=== PATIENT | male | born 1955 | race Caucasian/White ===

== ENCOUNTER 2025-01-25 09:31 | Outpatient (AMB) | payer MEDICARE, SELFPAY ==
--- NOTE | 2025-01-25 09:32 | MHC.OFFVIS ---
Vital Signs 01/25/25 09:39 Height 5 ft 10.5 in Weight 245 lb 2 oz BMI 34.7 BP 167/92 H Blood Pressure Location Rt brachial Position Sitting Pulse 82 Pulse Source Pulse Oximeter Pulse Oximetry (%) 98 Oxygen Delivery Method Room Air Intake Visit Reasons: Knee pain Intake Note: Pain today 5 Artist'S Model Required: No Accompanied by: Self / Same As Patient Allergies codeine Allergy (Unknown, Verified 01/25/25 09:38) Vomiting HPI Comments Details: The patient is a 69-year-old male presenting with bilateral knee pain. He reports experiencing chronic bilateral knee pain for 12 to 15 years, with greater intensity on the left knee. Denies recent trauma, injury or falls. Reports remote history of left knee surgery at age 19 along medial aspect of left knee. Denies any recent Orthopedic evaluation or recent physical therapy. X-rays taken approximately a year ago revealed marked osteoarthritis. He describes the pain as constant, aching, and stabbing, particularly concentrated on the medial aspects of the knees. This pain impairs his ability to perform daily activities, such as climbing stairs, necessitating altered foot positioning to ascend. The condition influences his decision to semi-retire, as his ability to work full-time is limited. The patient's history includes previous usage of aspirin 325 mg daily to manage pain, which was substituted for Tylenol Arthritis due to nosebleeds that started about 3 weeks ago. The patient also reports taking fish oil for cholesterol management. Given significant function limitation due to bilateral knee pain, patient is not able to pursue formal physical therapy at this time. - Onset: Chronic, 12-15 years duration - Character: Aching, stabbing, sharp, sore and throbbing sensations - Location: Bilateral knees, predominantly medial aspects - Severity: High enough to affect stair navigation and require foot angling. Pain is rated 7-8/10, constant. - Radiation: Non-radiating - Exacerbating factors: Climbing stairs, direct pressure on knees, walking - Relieving factors: Minimal relief with Tylenol Arthritis, previously with aspirin; rest, elevation, ice - Interference: Limits ability to ascend stairs normally, impacts work routine - Affect: Associated with daily functioning and work - Analgesia: Previously used aspirin, transitioned to Tylenol Arthritis; pain reduced slightly after change - Adverse Effects: Nosebleeds suspected from aspirin, now ceased; awareness of blood-thinning properties of fish oil - Activities of Daily Living: Affects stair navigation, limiting full-time work; semi-retired status - Aberrant Drug Related Behaviors: None reported [facility] Medical History (Updated 01/25/25 @ 09:58 by LYUDMILA Helms) Epistaxis Osteoarthritis of knees, bilateral Surgical History (Updated 01/25/25 @ 10:29 by LYUDMILA Helms) History of meniscectomy of left knee (~1973) H/O vasectomy H/O hernia repair Social History (Updated 01/25/25 @ 09:36 by Jenna Rubio) Alcohol intake: current Alcohol intake frequency: a few times a week Alcohol type: hard liquor Substance Use Type: Marijuana Review of Systems Const Details: - Musculoskeletal: Reports bilateral knee pain, especially on the left side - Neurological: Denies numbness or tingling - Sleep: Denies interference with sleep - Cardiovascular: Reports history of elevated blood pressure due to white coat syndrome - Hematological: Reports recurrent epistaxis, plans to stop fish oil and seek ER care if active bleeding. All systems reviewed & are unremarkable except as noted in HPI and below Physical Exam Vital Signs: Last Vital Signs Pulse 82 01/25/25 09:39 BP 167/92 H 01/25/25 09:39 Pulse Ox 98 01/25/25 09:39 Oxygen Delivery Method Room Air 01/25/25 09:39 BMI result Body Mass Index 34.7 General: Appears afebrile. Alert and oriented. Mood and affect appropriate. Follows and participates in conversation appropriately. Respiratory effort is unlabored. No cough. Left nostril packed with cotton ball, reports recent epistaxis this am. Able to transition from sit to stand unassisted. Ambulates with bilaterally normal heel strike and toe off. Extrem General: Yes capillary refill normal, Yes no clubbing, cyanosis or edema and Yes no calf tenderness Right lower extremity: knee (Limited ROM due to pain) Details: normal to inspection, tenderness Location: of the medial joint line and crepitus; no swelling, no ecchymosis and no unusual warmth Left lower extremity: knee (Limited ROM due to pain) Details: normal to inspection, tenderness Location: of the medial joint line and crepitus; no swelling, no ecchymosis and no unusual warmth Results Reviewed Results Reviewed: Assessment & Plan Assessment & Plan (1) Osteoarthritis of knees, bilateral: Code(s): M17.0 - Bilateral primary osteoarthritis of knee Category: Medical (2) Bilateral knee pain: Code(s): M25.561 - Pain in right knee; M25.562 - Pain in left knee Category: Medical (3) Epistaxis: Code(s): R04.0 - Epistaxis Category: Medical Plan The current therapeutic strategy involves administering Synvisc One gel injections to both knees to manage severe osteoarthritis, pending insurance pre-authorization. We also discussed steroid knee injections and diagnostic nerve blocks for potential Sprint PNS trial vs genicular nerve RFA. Information pamphlets were provided to patient. The approach aims to optimize the patient's comfort and ability to perform daily activities while maintaining non-invasive management. Educational points stress the importance of discontinuing fish oil to minimize epistaxis risk, coupled with guidance to promptly seek care if active bleeding resumes. All questions and concerns have been answered and patient agreed with the plan. Follow up after injections and sooner as needed. Patient was informed and verbally consented to the use of an ambient scribe for clinic note documentation during this visit. Patient Instructions: During this consultation, I explained to the patient that the primary diagnosis of osteoarthritis necessitates a Synvisc One or cortisone injection, pending insurance confirmation, as our chosen management due to its potential to alleviate joint pain. The conversation included an explanation of the pros and cons associated with cortisone versus gel injections, evaluating the solutions tailored to his unique needs and lifestyle. The dialogue covered risks, including potential discomfort following the gel injection and clarified that financial implications would be absent due to coverage from insurance. Consent was ratified for the use of these injections, understanding potential side effects and anticipated improvements. I also counselled on discontinuing fish oil, relaying its potential contribution to recent epistaxis. Patient has stopped Aspirin but continues with daily nosebleeds. Follow-up was scheduled to appraise response to treatment, with adjustments predicated on response efficacy and continued symptomatology management. - Stop taking fish oil supplements until further notice. Follow up with PCP regarding restarting ASA or fish oil. - Monitor nosebleeds; seek urgent or ER care if there is active bleeding that does not cease. - Prepare for potential gel injections; await notification regarding insurance authorization. - Adhere to current medication regimen with Tylenol Arthritis; monitor for response. - Report any significant changes in knee pain, mobility, or new symptoms. - Attend follow-up appointment after receiving the gel injections to assess effectiveness. Coding Level of Care Code New Pt Level 4 (23545) Diagnoses Osteoarthritis of knees, bilateral M17.0 Bilateral knee pain M25.561; M25.562 Epistaxis R04.0
[2025-01-25 09:39] VITALS: BP 167/92; PULSE 82; O2SAT 98; BMI 34.7
--- OUTSIDE RECORDS SUMMARY | 2025-01-25 09:43 | XMS_ITS | Clinical Summary ---
Author Organization [facility] Address [address] [place] [address] Care Team Providers Care Rn Baby Name Role Phone Unavailable Primary Care Provider Unavailabl e Social History Tobacco Use Types Packs/Day Years Used Date Smoking Tobacco: Never Assessed Sex and Gender Information Value Date Recorded Sex Assigned at Not on file Gender Identity Not on file Sexual Orientation Not on file Job Start Date Occupation Industry Not on file Not on file Not on file Plan of Treatment Health Maintenance Due Date Last Done Comments Hepatitis C Screening 1955 COVID-19 Vaccine (#1) 1957 Depression Screening 1969 Preventative Health Evaluation 1975 DTap / Tdap / Td (1 - Tdap) 1976 Colon Cancer Screening (Colonoscopy) 2002 Shingrix-Zoster Vaccine (1 of 2) 2007 Fall Risk Assessment 2022 Pneumococcal Vaccine (1 of 1 - PCV) 2022 Influenza Vaccine (#1) 2024 RSV Adult > 60+ Yrs or Pregn ant (1 - 1-dose 75+ series) 2032 Hepatitis B Vaccines Aged Out No long er eligible based on patient's age to complete this topic RSV Ped < 20 months Aged Out No longe r eligible based on patient's age to complete this topic
--- OUTSIDE RECORDS SUMMARY | 2025-01-25 09:43 | XMS_ITS | Encounter Summary ---
Author Organization [facility] Address [address] [place] [address] Care Team Providers Care Production Support Supervisor Name Role Phone Unavailable Primary Care Provider [...] PM EDT Report addended based on failed [employer] time stamp. Original dictation performed on 07/03/24. [...] pericardial effusion seen. Visualized abdomen is normal. ?? IMPRESSION: CT coronary calcium score of 190. *Calcium score table: 0: ?No evidence of CAD. 1-10: ? Minimal CAD. 11-100: ?Mild CAD. 101-400: ??Moderate CAD. Over 400: Extensive CAD. Procedure Note Walt Shaw MD - 07/30/2024 Report addended based on failed PowerScribe time stamp. Original dictationperformed on 07/03/24. Report reviewed and signed by : Dr. Walt Shaw on 07/07/2024 4:49 PM.Workstation Name - [id number]-PC Study performed in a separate session. EXAMINATION: [...]
--- OUTSIDE RECORDS SUMMARY | 2025-01-25 09:43 | XMS_ITS | Clinical Summary ---
Author Organization [facility] ity Address [address] [place] [address] Care Team Providers Care Linoleum Tile Layer Name Role Phone Unavailable Primary Care Provider Unavailabl e Social History Tobacco Use Types Packs/Day Years Used Date Smoking Tobacco: Never Assessed Sex and Gender Information Value Date Recorded Sex Assigned at Not on file Legal Sex Male 1:38 PM EDT Gender Identity Not on file Sexual Orientation Not on file Plan of Treatment Health Maintenance Due Date Last Done Comments DTaP,Tdap,and Td Vaccines (1 - Tdap) 1976 Pneumococcal Vaccine: 50+ Ye ars (1 of 1 - PCV) 2007 Zoster Vaccines (1 of 2) 2007 COVID-19 Vaccine ( - 2023-2 5 season) 2024 Abdominal Aortic Aneurysm (A AA) Screen 07/18/2024 Cholesterol Screening (Lipid Panel) 07/18/2024 Colorectal Cancer Screening: Colonoscopy 07/18/2024 Depression Screening 07/18/2024 Falls Risk Assessment 07/18/2024 Hepatitis C Screening 07/18/2024 Social Influencers of Health Screening 07/18/2024 Influenza Vaccine (Season Ended) 2025 RSV Immunization Adult Patie nts (1 - 1-dose 75+ series) 2032 HIB Vaccines Aged Out No longer eligi ble based on patient's age to complete this topic HPV Vaccines Aged Out No longer eligi ble based on patient's age to complete this topic Hepatitis A Vaccines Aged Out No long er eligible based on patient's age to complete this topic Hepatitis B Vaccines Aged Out No long er eligible based on patient's age to complete this topic IPV Vaccines Aged Out No longer eligi ble based on patient's age to complete this topic MMR Vaccines Aged Out No longer eligi ble based on patient's age to complete this topic Meningococcal ACWY Vaccine Aged Out N o longer eligible based on patient's age to complete this topic Meningococcal B Vaccine Aged Out No l onger eligible based on patient's age to complete this topic RSV Immunization Patients Un anmol 20 months Aged Out No longer eligible b ased on patient's age to complete this topic Varicella Vaccines Aged Out No longer eligible based on patient's age to complete this topic
== END 2025-01-25 10:17 | disposition home or self-care (01) ==
LOC: HO.PMC 09:31
PROVIDERS: PCP Physician Assistant Medical; Referring Provider Physician Assistant Medical; Visit Provider Nurse Practitioner Family
DX: M17.0 Bilateral primary osteoarthritis of knee (principal); M25.561 Pain in right knee; M25.562 Pain in left knee
CPT/HCPCS: 99204

== ENCOUNTER → 2025-01-25 09:31 | Outpatient (BNVA) | payer MEDICARE, SELFPAY | PROVIDERS: PCP Physician Assistant Medical; Referring Provider Physician Assistant Medical; Visit Provider Nurse Practitioner Family | DX: M17.0 Bilateral primary osteoarthritis of knee (principal); R04.0 Epistaxis | CPT/HCPCS: 99202 ==

== ENCOUNTER 2025-02-21 06:05 | Outpatient (REF) | payer MEDICARE, SELFPAY ==
--- NOTE | ~2025-02-21 | FL_ITS ---
EXAMINATION: XR FLUOROSCOPY WITH IMAGES CLINICAL INFORMATION: Left knee pain management. COMPARISON: None available. TECHNIQUE: Fluoroscopy provided to: Dr. Spangler Fluoroscopy time: 0.2 minutes DAP: [id number] mGycm2 Images: 3 FINDINGS: 3 fluoroscopic spot images taken during left knee pain management injection. Please refer to the full operative report for details. FL/FL guidance in treatment room IMPRESSION: Fluoroscopic guidance. Electronically signed by: Israel Arteaga MD 02/21/2025 01:41 PM EDT
== END 2025-02-21 06:06 | disposition home or self-care (01) ==
LOC: CF 06:05
PROVIDERS: Visit Provider Internal Medicine
DX: M17.0 Bilateral primary osteoarthritis of knee (principal)
CPT/HCPCS: 20610; J2003; J7325; Q9967

== ENCOUNTER 2025-02-21 09:32 | Outpatient (AMB) | payer MEDICARE, SELFPAY ==
[2025-02-21 09:40] VITALS: BP 138/76; PULSE 88; RESP 16; O2SAT 98
--- NOTE | 2025-02-21 09:40 | A.OFFVIS_ITS ---
Vital Signs 02/21/25 09:40 02/21/25 10:19 BP 138/76 140/82 H Blood Pressure Location Lt brachial Lt brachial Position Sitting Sitting Respiration 16 16 Pulse 88 73 Pulse Source Pulse Oximeter Pulse Oximeter Pulse Oximetry (%) 98 97 Oxygen Delivery Method Room Air Room Air Intake Visit Reasons: Left knee Synvisc One w/ fluoro Computer Assembler Required: No Allergies codeine Allergy (Unknown, Verified 02/21/25 09:41) Vomiting Medication List - Last Reconciled 02/21/25 by Mikki Dickerson LPN acetaminophen ER 650 mg PO Q12H glucosamine-chondroitin 250-200 mg (Osteo Bi-Flex) 2 tabs PO TID omega 5-izw-blt-fish oil 1,000 (120-180) mg (Fish Oil) 1 cap PO DAILY vitamin K2 100 mcg PO DAILY HPI HPI Left knee Synvisc One w/ fluoro: Details: Patient presents for scheduled procedure. Denies any recent cough, cold, infection, fever or other significant changes in medical history since last office visit. [facility] Medical History (Updated 01/25/25 @ 09:58 by LYUDMILA Helms) Epistaxis Osteoarthritis of knees, bilateral Surgical History (Updated 01/25/25 @ 10:29 by LYUDMILA Helms) History of meniscectomy of left knee (~1973) H/O vasectomy H/O hernia repair Social History (Updated 01/25/25 @ 09:41 by Jenna Rubio) Alcohol intake: current Alcohol intake frequency: a few times a week Alcohol type: hard liquor Substance Use Type: Marijuana Physical Exam Vital Signs: Last Vital Signs Pulse 73 02/21/25 10:19 Resp 16 02/21/25 10:19 BP 140/82 H 02/21/25 10:19 Pulse Ox 97 02/21/25 10:19 Oxygen Delivery Method Room Air 02/21/25 10:19 Office Procedures AMB Joint Injection/Aspiration Joint Injection/Aspiration Primary Site: left knee Prep: site was prepped using sterile technique Approach Used: medial parapatellar (fluoroscopy guided arthrogram) Procedure: The patient tolerated the procedure well Coding 20325 - Large joint Procedure code (CPT) selection complete Office Meds Synvisc-One 48 mg/6 mL intra-articular syringe Performing Provider: Gabi Rader APRN, INSIDE SALES TERRITORY MANAGER Performing Location: [facility] [place] [facility] Administered by: Scott Spangler MD on 02/21/25 09:59 Dose Route Admin Location Dispensed Lot Number Expiration Date ND Process Design Engineer 48 mg intra-articular 6 mL [id number] 03/03/27 [address]-3 [employer] - Assessment & Plan Assessment & Plan (1) Osteoarthritis of knees, bilateral: Code(s): M17.0 - Bilateral primary osteoarthritis of knee Category: Medical Plan Patient is status post left knee Synvisc injection. Patient tolerated procedure well and was discharged home in stable condition with discharge instructions. All questions were answered. We will follow-up via telephone or in clinic to assess response to therapy. A follow-up appointment was made during today's visit. Orders: Orders FL guidance in treatment room Today M25.561 - Pain in right knee, M25.562 - Pain in left knee AMB Hyaluronic Injection Today M17.0 - Bilateral primary osteoarthritis of knee Coding Level of Care Code Procedure Only Diagnoses Osteoarthritis of knees, bilateral M17.0 CPT Codes Coding - 12516 Large joint: 10436 - Large joint ([id number])
--- OUTSIDE RECORDS SUMMARY | 2025-02-21 09:49 | XMS_ITS | Clinical Summary ---
Author Organization [facility] ity Address [address] [place] [address] Care Team Providers Care Thread Marker Name Role Phone Unavailable Primary Care Provider [...]
--- OUTSIDE RECORDS SUMMARY | 2025-02-21 09:49 | XMS_ITS | Encounter Summary ---
Author Organization [facility] Address [address] [place] [address] Care Team Providers Care County Attorney Name Role Phone Unavailable Primary Care Provider [...] PM EDT Report addended based on failed Filmastercribe time stamp. Original dictation performed on 07/03/24. [...] Shaw on 07/07/2024 4:49 PM.Workstation Name - [employer]2-PC Study performed in a separate session. EXAMINATION: [...]
--- OUTSIDE RECORDS SUMMARY | 2025-02-21 09:50 | XMS_ITS | Clinical Summary ---
Author Organization [facility] Address [address] [place] [address] Care Team Providers Care Soccer Ball Assembler Name Role Phone Unavailable Primary Care Provider [...]
[2025-02-21 10:19] VITALS: BP 140/82; PULSE 73; RESP 16; O2SAT 97
== END 2025-02-21 10:19 | disposition home or self-care (01) ==
LOC: HO.PMCPRC 09:32
PROVIDERS: PCP Physician Assistant Medical; Visit Provider Internal Medicine
DX: M17.0 Bilateral primary osteoarthritis of knee (principal)
CPT/HCPCS: 20610; 77002

== ENCOUNTER 2025-02-28 06:16 | Outpatient (REF) | payer MEDICARE, SELFPAY ==
--- NOTE | ~2025-02-28 | FL_ITS ---
EXAMINATION: XR FLUOROSCOPY WITH IMAGES CLINICAL INFORMATION: Right knee osteoarthritis, pain management injection. COMPARISON: None available. TECHNIQUE: Fluoroscopy provided to: Dr. Spangler Fluoroscopy time: 0.3 minutes DAP: [id number] Images: 1 FINDINGS: Solitary spot image of the right knee during intra-articular joint injection. For full operative report for details. FL/FL guidance in treatment room IMPRESSION: Fluoroscopic guidance. Electronically signed by: Israel Arteaga MD 02/28/2025 02:19 PM EDT
== END 2025-02-28 06:17 | disposition home or self-care (01) ==
LOC: CF 06:16
PROVIDERS: Visit Provider Internal Medicine
DX: M17.0 Bilateral primary osteoarthritis of knee (principal)
CPT/HCPCS: 20610; J2003; J7325; Q9967

== ENCOUNTER 2025-02-28 09:39 | Outpatient (AMB) | payer MEDICARE, SELFPAY ==
--- NOTE | 2025-02-28 09:39 | MHC.OFFVIS ---
Vital Signs 02/28/25 09:40 02/28/25 10:43 Height 5 ft 10.5 in BP 146/75 H 150/76 H Blood Pressure Location Lt brachial Lt brachial Position Sitting Sitting Respiration 15 15 Pulse 90 64 Pulse Source Pulse Oximeter Pulse Oximeter Pulse Oximetry (%) 97 96 Oxygen Delivery Method Room Air Room Air Intake Visit Reasons: Right knee Synvisc One w/ fluoro Shellfish Shucker Required: No Allergies codeine Allergy (Unknown, Verified 02/28/25 09:52) Vomiting HPI HPI Right knee Synvisc One w/ fluoro: Details: Patient presents for scheduled procedure. Denies any recent cough, cold, infection, fever or other significant changes in medical history since last office visit. [facility] Medical History (Updated 01/25/25 @ 09:58 by LYUDMILA Helms) Epistaxis Osteoarthritis of knees, bilateral Surgical History (Updated 01/25/25 @ 10:29 by LYUDMILA Helms) History of meniscectomy of left knee (~1973) H/O vasectomy H/O hernia repair Social History (Updated 01/25/25 @ 09:41 by Jenna Rubio) Alcohol intake: current Alcohol intake frequency: a few times a week Alcohol type: hard liquor Substance Use Type: Marijuana Physical Exam Vital Signs: Last Vital Signs Pulse 64 02/28/25 10:43 Resp 15 02/28/25 10:43 BP 150/76 H 02/28/25 10:43 Pulse Ox 96 02/28/25 10:43 Oxygen Delivery Method Room Air 02/28/25 10:43 Office Procedures AMB Joint Injection/Aspiration Joint Injection/Aspiration Primary Site: right knee Prep: site was prepped using sterile technique Approach Used: medial parapatellar (Fluoroscopy Guided) Procedure: The patient tolerated the procedure well Coding 31144 - Large joint Procedure code (CPT) selection complete Office Meds Synvisc-One 48 mg/6 mL intra-articular syringe Performing Provider: Gabi Rader APRN, LAUNDRY MACHINE OPERATOR Performing Location[place] [facility] [place] [facility] Administered by: Scott Spangler MD on 02/28/25 10:27 Dose Route Admin Location Dispensed Lot Number Expiration Date ND Ceramic Maker Demonstrator 48 mg intra-articular 6 mL [id number] 04/01/27 [address]-8 [employer] DEON - Assessment & Plan Assessment & Plan (1) Osteoarthritis of knees, bilateral: Code(s): M17.0 - Bilateral primary osteoarthritis of knee Category: Medical Plan Patient is status post right knee Synvisc-One injection. Patient tolerated procedure well and was discharged home in stable condition with discharge instructions. All questions were answered. We will follow-up via telephone or in clinic to assess response to therapy. A follow-up appointment was made during today's visit. Orders: Orders FL guidance in treatment room Today M17.0 - Bilateral primary osteoarthritis of knee AMB Hyaluronic Injection Today M17.0 - Bilateral primary osteoarthritis of knee Coding Level of Care Code Procedure Only Diagnoses Osteoarthritis of knees, bilateral M17.0 CPT Codes Coding - 39780 Large joint: 01730 - Large joint ([id number])
[2025-02-28 09:40] VITALS: BP 146/75; PULSE 90; RESP 15; O2SAT 97
[2025-02-28 10:43] VITALS: BP 150/76; PULSE 64; RESP 15; O2SAT 96
== END 2025-02-28 10:46 | disposition home or self-care (01) ==
LOC: HO.PMCPRC 09:39
PROVIDERS: PCP Physician Assistant Medical; Visit Provider Internal Medicine
DX: M17.11 Unilateral primary osteoarthritis, right knee (principal)
CPT/HCPCS: 20610; 77002

== ENCOUNTER 2025-03-21 09:56 | Outpatient (AMB) | payer MEDICARE, SELFPAY ==
--- OUTSIDE RECORDS SUMMARY | 2024-07-03 12:38 | XMS_ITS | Encounter Summary ---
Author Organization [facility] Address [address] [place] [address] Care Team Providers Care Oil Program Compliance Specialist Name Role Phone Unavailable Primary Care Provider Unavailabl e Encounter Details Date Type Department Care Team (Latest Contact Info) Description 07/03/2024 12:38 PM EDT Hospital Encounter TH HISTORIC ENCOUNTERS EASTERN CONVERSION ONLY Hyperlipidemia, unspecified Social History Tobacco Use Types Packs/Day Years Used Date Smoking Tobacco: Never Assessed Sex and Gender Information Value Date Recorded Sex Assigned at Not on file Legal Sex Male 1:38 PM EDT Gender Identity Not on file Sexual Orientation Not on file documented as of this encounter Plan of Treatment Not on file documented as of this encounter Procedures Procedure Name Priority Date/Time Associated Diagnosis Comments CT CORONARY CALCIUM SCORE WITHOUT IV CONTRAST Routine 07/03/2024 1:03 PM EDT Hyperlipidemia, unspecified documented in this encounter Results * CT CORONARY CALCIUM SCORE WITHOUT IV CONTRAST (07/03/2024 1:03 PM EDT) Anatomical Region Laterality Modality Computed Tomogra phy 06/08/2024 9:24 AM EDT Narrative 07/07/2024 4:49 PM EDT Report addended based on failed [employer] time stamp. Original dictation performed on 07/03/24. Report reviewed and signed by : Dr. Walt Shaw on 07/07/2024 4:49 PM. Workstation Name - [id number] Study performed in a separate session. EXAMINATION: CT coronary calcium scoring without contrast HISTORY: Evaluate for coronary calcifications. Technique: Contiguous CT images of the heart were obtained without contrast. Coronary calcium scoring done using a software with Agatston scoring system. FINDINGS: There are mild coronary calcifications seen. The coronary calcium scores are as follows: left main 0, LAD 45, LCx 0 and RCA is 145. Visualized lungs are clear. Visualized bones show no suspicious lesions. No cardiomegaly or pericardial effusion seen. Visualized abdomen is normal. IMPRESSION: CT coronary calcium score of 190. *Calcium score table: 0: No evidence of CAD. 1-10: Minimal CAD. 11-100: Mild CAD. 101-400: Moderate CAD. Over 400: Extensive CAD. Procedure Note Walt Shaw MD - 07/30/2024 Report addended based on failed [employer] time stamp. Original dictationperformed on 07/03/24. Report reviewed and signed by : Dr. Walt Shaw on 07/07/2024 4:49 PM.Workstation Name - [id number] Study performed in a separate session. EXAMINATION: CT coronary calcium scoring without contrast HISTORY: Evaluate for coronary calcifications. Technique: Contiguous CT images of the heart were obtained withoutcontrast. Coronary calcium scoring done using a software with Agatstonscoring system. FINDINGS: There are mild coronary calcifications seen. The coronary calcium scores are as follows: left main 0, LAD 45, LCx 0 and RCA is 145. Visualized lungs are clear. Visualized bones show no suspicious lesions. No cardiomegaly or pericardial effusion seen. Visualized abdomen isnormal. IMPRESSION: CT coronary calcium score of 190. *Calcium score table: 0: No evidence of CAD. 1-10: Minimal CAD. 11-100: Mild CAD. 101-400: Moderate CAD. Over 400: Extensive CAD. Kush Rangel NP IMG CT PROCEDURES Final Re sult documented in this encounter Visit Diagnoses Diagnosis Hyperlipidemia, unspecified documented in this encounter
--- NOTE | 2025-03-21 10:03 | MHC.OFFVIS ---
Vital Signs 03/21/25 10:12 Height 5 ft 10.5 in Weight 242 lb BMI 34.2 BP 132/60 Blood Pressure Location Rt brachial Position Sitting Pulse 86 Pulse Source Pulse Oximeter Pulse Oximetry (%) 99 Oxygen Delivery Method Room Air Intake Visit Reasons: s/p liana Synvisc One inj Intake Note: Pain today 0/10 Email Operations Manager Required: No Accompanied by: Self / Same As Patient Allergies codeine Allergy (Unknown, Verified 03/21/25 10:11) Vomiting HPI Comments Details: The patient is a 69-year-old male presenting with chronic bilateral knee pain due to osteoarthritis. He received Synvisc 1 gel injections in January, which have effectively reduced his pain to 0/10. The patient reports stiffness after prolonged sitting and discomfort with climbing stairs but no significant pain. He has been using an Expedite collagen supplement since the injections, which he believes aids in his recovery. The patient discontinued statins and fish oil due to adverse effects, including frequent nose bleeding, and now plans to take fish oil once a week. Weight management has been discussed as a preventative measure to alleviate knee stress. Denies any recent cough, cold, infection, fever or any significant changes in medical history since last office visit. Past Procedures: 02/28/25: Right knee Synvisc One-90% ongoing pain relief 02/21/25: Left knee Synvisc One-90% ongoing pain relief PRIOR: The patient is a 69-year-old male presenting with bilateral knee pain. He reports experiencing chronic bilateral knee pain for 12 to 15 years, with greater intensity on the left knee. Denies recent trauma, injury or falls. Reports remote history of left knee surgery at age 19 along medial aspect of left knee. Denies any recent Orthopedic evaluation or recent physical therapy. X-rays taken approximately a year ago revealed marked osteoarthritis. He describes the pain as constant, aching, and stabbing, particularly concentrated on the medial aspects of the knees. This pain impairs his ability to perform daily activities, such as climbing stairs, necessitating altered foot positioning to ascend. The condition influences his decision to semi-retire, as his ability to work full-time is limited. The patient's history includes previous usage of aspirin 325 mg daily to manage pain, which was substituted for Tylenol Arthritis due to nosebleeds that started about 3 weeks ago. The patient also reports taking fish oil for cholesterol management. Given significant function limitation due to bilateral knee pain, patient is not able to pursue formal physical therapy at this time. - Onset: Chronic, 12-15 years duration - Character: Aching, stabbing, sharp, sore and throbbing sensations - Location: Bilateral knees, predominantly medial aspects - Severity: High enough to affect stair navigation and require foot angling. Pain is rated 7-8/10, constant. - Radiation: Non-radiating - Exacerbating factors: Climbing stairs, direct pressure on knees, walking - Relieving factors: Minimal relief with Tylenol Arthritis, previously with aspirin; rest, elevation, ice - Interference: Limits ability to ascend stairs normally, impacts work routine - Affect: Associated with daily functioning and work - Analgesia: Previously used aspirin, transitioned to Tylenol Arthritis; pain reduced slightly after change - Adverse Effects: Nosebleeds suspected from aspirin, now ceased; awareness of blood-thinning properties of fish oil - Activities of Daily Living: Affects stair navigation, limiting full-time work; semi-retired status - Aberrant Drug Related Behaviors: None reported [facility] Medical History Epistaxis Osteoarthritis of knees, bilateral Surgical History History of meniscectomy of left knee (~1973) H/O vasectomy H/O hernia repair Social History Alcohol intake: current Alcohol intake frequency: a few times a week Alcohol type: hard liquor Substance Use Type: Marijuana Review of Systems Const All systems reviewed & are unremarkable except as noted in HPI and below Physical Exam Vital Signs: Last Vital Signs Pulse 86 03/21/25 10:12 BP 132/60 03/21/25 10:12 Pulse Ox 99 03/21/25 10:12 Oxygen Delivery Method Room Air 03/21/25 10:12 BMI result Body Mass Index 34.2 General: Appears afebrile. Alert and oriented. Mood and affect appropriate. Follows and participates in conversation appropriately. Respiratory effort is unlabored. No cough. Able to transition from sit to stand unassisted. Ambulates with bilaterally normal heel strike and toe off. Extrem General: Yes capillary refill normal, Yes no clubbing, cyanosis or edema and Yes no calf tenderness Right lower extremity: knee Details: normal to inspection, tenderness Location: of the medial joint line (minimal) and crepitus; no swelling, no ecchymosis and no unusual warmth Left lower extremity: knee Details: normal to inspection, tenderness Location: of the medial joint line (mild) and crepitus; no swelling, no ecchymosis and no unusual warmth Results Reviewed Results Reviewed: Assessment & Plan Assessment & Plan (1) Bilateral knee pain: Code(s): M25.561 - Pain in right knee; M25.562 - Pain in left knee Category: Medical (2) Osteoarthritis of knees, bilateral: Code(s): M17.0 - Bilateral primary osteoarthritis of knee Category: Medical Plan The patient will maintain the current treatment with Synvisc 1 gel injections, which have effectively managed his knee pain. He should monitor his pain levels and contact the office if the pain returns to baseline levels. Weight management is advised to reduce knee stress, and the patient may continue using the collagen supplement as needed. The patient is advised to reintroduce fish oil cautiously, taking it once a week to prevent adverse effects, such as nose bleeds and follow up with his PCP for potential ENT referral should bleeding reoccur. All questions and concerns have been answered and patient agreed with the treatment plan. Follow-up as needed. Patient was informed and verbally consented to the use of an ambient scribe for clinic note documentation during this visit. Coding Level of Care Code Est Pt Level 3 (29149) Complex EM visit Add On G2211 Diagnoses Bilateral knee pain M25.561; M25.562 Osteoarthritis of knees, bilateral M17.0
[2025-03-21 10:12] VITALS: BP 132/60; PULSE 86; O2SAT 99; BMI 34.2
== END 2025-03-21 10:27 | disposition home or self-care (01) ==
LOC: HO.PMC 09:57
PROVIDERS: PCP Physician Assistant Medical; Visit Provider Nurse Practitioner Family
DX: M25.561 Pain in right knee (principal); M25.562 Pain in left knee; M17.0 Bilateral primary osteoarthritis of knee
CPT/HCPCS: 99213; G2211

== ENCOUNTER → 2025-03-21 09:56 | Outpatient (BNVA) | payer MEDICARE, SELFPAY | PROVIDERS: PCP Physician Assistant Medical; Visit Provider Nurse Practitioner Family | DX: M25.561 Pain in right knee (principal); M25.562 Pain in left knee; M17.0 Bilateral primary osteoarthritis of knee | CPT/HCPCS: 99212 ==